=== PATIENT | male | born 1945 | race Caucasian/White ===

== ENCOUNTER 2018-08-11 07:06 | Day surgery (SDC) | payer MEDICARE ==
[2018-08-09 13:12] LABS: BASOPHILS % (AUTO) 1.3 % (0.0-5.0); EOSINOPHILS % (AUTO) 2.1 % (0.0-8.0); HEMATOCRIT 39.1 % (42-54); LYMPHOCYTES % (AUTO) 32.3 % (21.0-51.0); MEAN CORPUSCULAR HEMOGLOBIN 29.9 pg (27.0-33.0); MEAN CORPUSCULAR HGB CONC 33.7 g/dL (32.0-36.0); MEAN CORPUSCULAR VOLUME 88.9 fL (79-99); MONOCYTES % (AUTO) 8.2 % (3.0-13.0); NEUTROPHILS % (AUTO) 56.1 % (40.0-77.0); PLATELET COUNT (AUTO) 210 K/uL (130-400); RED CELL DISTRIBUTION WIDTH 13.4 % (11.0-15.5); WHITE BLOOD COUNT (AUTO) 6.3 K/uL (4.8-10.8)
[2018-08-09 13:15] VITALS: BP 140/77
[2018-08-09 13:21] LABS: CREATININE 1.1 mg/dL (0.5-1.5); POTASSIUM 4.2 mmol/L (3.5-5.1)
[2018-08-09 13:29] LABS: INR 1.04 (0.85-1.15); PARTIAL THROMBOPLASTIN TIME 29.6 SEC (26.3-35.5); PROTHROMBIN TIME 10.9 SEC (9.6-11.6)
--- NOTE | 2018-08-09 15:20 | NUR ---
PCN ALLERGY CALLED DR. MADDOX'S OFFICE, SPOKE TO DANIELA DYER: JACOB CARABALLO, PT ALLERGIC TO PCN, STATED THAT PER DR. MADDOX, IT IS FINE, HE DOES NOT NORMALLY GIVE ANTIBIOTICS WITH LOOP RECORDER REMOVAL.
[~2018-08-11] VITALS: Ht 172.7 cm; Wt 76.7 kg
[~2018-08-11 07:06] MED LIST: ASPI-555 PO; CLINDAMYCIN 900 MG/D5% WATER 50 ML IV SCH; INSU10VI3 SQ; LEVO75TA10 PO; LOSA50TA64 PO; METF-446 PO; PRAV80TA21 PO; RIVA20TA PO; SODIUM CHLORIDE 0.9% 1000ML 1,000 ML IV SCH
--- NOTE | 2018-08-11 09:30 | NUR ---
PT AAOX3 NO C/O CHEST PAIN, NO DISTRESS. PT TRANSFERRED IN BED BY NOREEN WREN TO TEXTILE STYLIST. IN ROOM WITH PERSONAL BELONGINGS. PT IS REQUESTING TO KEEP LOOP RECORDER IF POSSIBLE.
[2018-08-11] MEDS ORDERED: BUPIVACAINE/PF 0.25% 30ML VIAL IJ ONE (09:34)
[2018-08-11] MEDS ORDERED: CEFAZOLIN SODIUM 1 GM VIAL ONE (09:34)
[2018-08-11] MEDS ORDERED: LIDOCAINE HCL 1% MDV 50ML VIAL ONE (09:34)
[2018-08-11] MEDS ORDERED: SODIUM CHLORIDE 0.9% 1000ML 1,000 ML IV ONE (09:54)
[2018-08-11] MEDS ORDERED: ACETAMINOPHEN-CODEINE 300/30MG TAB PO PRN ×2 (10:30)
[2018-08-11] MEDS ORDERED: ACETAMINOPHEN 325 MG TAB PO PRN (10:30)
[2018-08-11 10:35] VITALS: BP 141/69
[2018-08-11 11:10] VITALS: BP 144/65
--- NOTE | 2018-08-11 11:15 | NUR ---
PT TOLERATED PROCEDURE VERY WELL, CAME BACK TO ROOM AAOX3, NO C/O PAIN TO INCISION SITE S/P PROCEDURE, DRESSING PAD WAS D/I. VITALS AT BASELINE , PT STABLE. PT GIVEN POST CARE INSTRUCTIONS AND WOUND CARE EDUCATION ON DAILY DRESSING CHANGES ALONG WITH EXTRA SUPPLIES TO CHANGE AT HOME. BOTH AND PT VERBALIZED UNDERSTANDING. PT DRIVEN HOME BY , TAKEN OUT IN WHEELCHAIR TO CAR.
== END 2018-08-11 11:15 | disposition home or self-care (01) ==
LOC: DAH 07:06
PROVIDERS: ATTEND Internal Medicine Cardiovascular Disease
DX: Z45.09 Encounter for adjustment and management of other cardiac device (principal); Z79.899 Other long term (current) drug therapy; I48.0 Paroxysmal atrial fibrillation; R55 Syncope and collapse; Z98.890 Other specified postprocedural states; Z88.0 Allergy status to penicillin; Z79.01 Long term (current) use of anticoagulants
CPT/HCPCS: 33286; 36415; 80048; 82948; 85025; 85610; 85730; 93005; A4606; A4649; J3490 ×2; J7030; J0690

== ENCOUNTER 2019-11-28 07:22 | Day surgery (SDC) | payer MEDICARE ==
[2019-11-28] VITALS (7 sets, daily range): BP systolic 111–146; BP diastolic 65–81
[~2019-11-28] VITALS: Ht 172.7 cm; Wt 74.8 kg
[~2019-11-28 07:22] MED LIST changes: -ASPI-555 PO; +ASPI-556 PO; -CLINDAMYCIN 900 MG/D5% WATER 50 ML IV SCH; +INSU100V37 SQ; -INSU10VI3 SQ; +OMEP40CA13 PO; +REPA1TAB5 PO; +SODIUM CHLORIDE 0.9% 1000ML 1,000 ML IV ONE; -SODIUM CHLORIDE 0.9% 1000ML 1,000 ML IV SCH
[2019-11-28] MEDS ORDERED: PROPOFOL 10 MG/ML 20ML VIAL IV ONE (09:01)
== END 2019-11-28 09:40 | disposition home or self-care (01) ==
LOC: ENDO 07:22 → DAH 07:22 → ENDO 09:40
PROVIDERS: ATTEND Internal Medicine Gastroenterology
DX: R10.13 Epigastric pain (principal); K29.50 Unspecified chronic gastritis without bleeding; K29.80 Duodenitis without bleeding; K22.8 Other specified diseases of esophagus; D12.8 Benign neoplasm of rectum; I67.89 Other cerebrovascular disease; K31.89 Other diseases of stomach and duodenum; K44.9 Diaphragmatic hernia without obstruction or gangrene; I10 Essential (primary) hypertension; E78.5 Hyperlipidemia, unspecified; E11.9 Type 2 diabetes mellitus without complications; E03.9 Hypothyroidism, unspecified; Z86.73 Personal history of transient ischemic attack (TIA), and cerebral infarction without residual deficits; Z11.59 Encounter for screening for other viral diseases
CPT/HCPCS: 36415; 43239; 82948 ×2; 87635; 88305; 88342; A4215; A4221; A4222; A4223; A4606; A4620; A4663; J2704; J7030; 43200